=== PATIENT | male | born 1985 | race African-American/Black ===

== ENCOUNTER 2025-01-16 13:14 | Emergency (ER) | payer OTHER ==
[2025-01-16] MEDS ORDERED: LIDOCAINE 1% 20 ML MDV ONE (13:31)
--- NOTE | 2025-01-16 13:56 | RAD REPORT ---
EXAM: CT brain without contrast HISTORY: TRAUMA COMPARISON: None TECHNIQUE: Multiple contiguous axial images were obtained and a CT of the brain without contrast. Sag ittal and coronal reformats were performed. One or more of the following dose reduction techniques were used: Automated exposure control, adjust ment of the mA and/or kV according to patient size, and/or iterative reconstruction. FINDINGS: No evidence of hydrocephalus, intracranial hemorrhage, or extra-axial fluid collection. The brain is normal in morphology. No evidence of midline shift or areas of brain edema. The calvarium is intact. The visualized paranasal sinuses and mastoid air cells are essentially clear . EXAM: CT of the cervical spine without contrast HISTORY: Neck pain, injury TRAUMA TECHNIQUE: Multiple contiguous axial images were obtained in a CT of the cervical spine without contr ast. Sagittal and coronal reformats were performed. FINDINGS: The vertebral bodies demonstrate normal height and alignment. No evidence of acute fracture or subluxation.. There is mild spondylosis noted at C5-6. No prevertebral soft tissue swelling is seen. The posterior facets are well aligned. Normal alignment of the skull base with the cervical spine is seen. The lung apices are unremarkable. COMBINED IMPRESSION: No evidence of acute intracranial abnormality. No evidence of acute osseous abnormality of the cervical spine. Mild spondylosis C5-6.
[2025-01-16 14:28] LABS: Absolute Eosinophils 0.1 K/uL (0-0.5); Absolute Lymphocytes (CBC) 1.2 K/uL (0.7-4.9); Absolute Monocytes 0.4 K/uL (0.1-1.3); Absolute Neutrophil 4.7 K/uL (1.8-8.0); Basophils % 0.7 % (0-1.3); Hematocrit 34.8 % (39.6-49.0); Hemoglobin 12.1 g/dL (13.6-17.9); MCH 30.7 pg (27.0-35.0); MCHC 34.7 g/dL (32.0-36.0); MCV 88.4 fL (80-100); MPV 9.6 fL (7.6-11.3); Monocytes % 6.7 % (3.3-12.3); Neutrophils % 72.6 % (41.7-73.7); Platelets 213 thou/uL (152-406); RBC Red Blood Cell Count 3.94 M/uL (4.33-5.43); Red Cell Distribution Width 12.4 % (12.1-15.2)
[2025-01-16 14:37] LABS: PT Prothrombin Time 11.4 SECONDS (10-13.0); PTT, Activated Partial Thromb 20.1 SECONDS (27.2-37.4)
[2025-01-16 14:43] LABS: Barbiturates NEGATIVE (NEGATIVE); Benzodiazepines NEGATIVE (NEGATIVE); Cocaine NEGATIVE (NEGATIVE); METHAMPHETAM NEGATIVE (NEGATIVE); Methadone NEGATIVE (NEGATIVE); Opiates NEGATIVE (NEGATIVE); Phencyclidine NEGATIVE (NEGATIVE); THC Cannibis NEGATIVE (NEGATIVE)
[2025-01-16 14:53] LABS: Albumin 3.3 g/dL (3.4-5.0); Albumin/Globulin Ratio 0.9 (1.1-1.8); Anion Gap 9.9 mEq/L (5.0-15.0); Bilirubin Direct 0.2 mg/dL (0-0.2); Bilirubin Indirect, Calculated 0.8 mg/dL (0.2-0.8); Globulin 3.6 g/dL (2.3-3.5); Potassium 3.9 mEq/L (3.5-5.1); Protein, Total 6.9 g/dL (6.4-8.2)
--- NOTE | 2025-01-16 15:08 | EDPHYS ---
Physician Documentation [facility] Name: Fahad Westfall Age: 39 yrs Sex: Male : 1985 Arrival Date: 01/16/2025 Time: 13:14 Bed 12 Private MD: ED Physician Alexander Steve HPI: 01/16 13:21 This 39 yrs old Male presents to ER via Unassigned with complaints of Laceration To sb4 Forehead, Drug Abuse. 13:22 patient was found down in a communal room this afternoon with a forehead laceration, sb4 complaining of neck pain. patient does not recall what happened. EMS noted him to be hypotensive - 81/41 - and somnolent, administered 2 rounds of 2 mg narcan and IV fluids which improved his mentation and blood pressure. patient denies any other injuries. has no complaints at this time. Historical: - Allergies: 13:23 No Known Allergies; kj2 - Immunization history:: Adult Immunizations unknown. - Infectious Disease History:: Denies. - Social history:: Smoking status: unknown. ROS: 13:22 Constitutional: Negative for fever, chills, and weight loss, sb4 13:22 Neck: Positive for pain at rest, of the neck, 13:22 Skin: Positive for laceration(s), of the forehead, 13:22 All other systems are negative, Exam: 13:22 Head/Face: Normocephalic, atraumatic. Eyes: Extra-ocular motions intact. Periorbital sb4 areas with no swelling, redness, or edema. Cardiovascular: Regular rate and rhythm with a normal S1 and S2. Respiratory: No increased work of breathing, no retractions or nasal flaring. Abdomen/GI: Soft, non-tender, no distension. 13:22 Constitutional: The patient appears in no acute distress, alert, awake, 13:22 Neck: C-spine: C-collar placed [employer], C-collar is removed, after CT scanning reveals no obvious unstable abnormality, 13:22 Skin: injury, laceration(s), the wound is approximately 5 cm(s), with a depth of .5 cm(s), of the forehead, that can be described as clean, no foreign body, linear, without bleeding, Vital Signs: 13:19 BP 105 / 65; Pulse 66; Resp 20; Temp 98.1; Pulse Ox 100% ; Weight 78.47 kg; kj2 14:25 BP 106 / 74; Pulse 68; Resp 18; Pulse Ox 100% on R/A; kj2 15:26 BP 114 / 74; Pulse 70; Resp 20; Temp 98; Pulse Ox 100% on R/A; kj2 Laceration: 15:05 Wound Repair of 5cm ( 2.0in ) subcutaneous laceration to forehead. Distal sb4 neuro/vascular/tendon intact. Anesthesia: Local anesthetic administered with 7 mls of 1% lidocaine. Wound prep: Simple cleansing with hibiclenz by me, Wound irrigation with saline by me, Copious irrigation. Skin closed with 4 5-0 Prolene using simple sutures and sterile technique. Dressed with Neosporin. Patient tolerated well. MDM: 13:18 Medical Screening Exam initiated sb4 13:55 Differential diagnosis: concussion, intracranial bleed, skull fracture, drug abuse, sb4 superficial laceration. 15:05 Data reviewed: vital signs, nurses notes, EMS record, lab test result(s), radiologic sb4 studies, and as a result, I will discharge patient. Historians other than the Patient: EMS: EMS. Law enforcement: correctional officers. Counseling: I had a detailed discussion with the patient and/or guardian regarding the historical points, exam findings, and any diagnostic results supporting the discharge/admit diagnosis, lab results, radiology results, the need for outpatient follow up, for suture removal in 5-7 days, to return to the emergency department if symptoms worsen or persist or if there are any questions or concerns that arise at home. 01/16 13:20 Order name: Acetaminophen; Complete Time: 15:08 sb4 01/16 13:20 Order name: Basic Metabolic Panel; Complete Time: 15:08 sb4 01/16 13:20 Order name: CBC with Diff; Complete Time: 14:30 sb4 01/16 13:20 Order name: ETOH Level; Complete Time: 15:08 sb4 01/16 13:20 Order name: Hepatic Function; Complete Time: 15:08 sb4 01/16 13:20 Order name: PT-INR; Complete Time: 14:38 sb4 01/16 13:20 Order name: Ptt, Activated; Complete Time: 14:38 sb4 01/16 13:20 Order name: Salicylate sb4 01/16 13:20 Order name: Urine Drug Screen; Complete Time: 14:45 sb4 01/16 13:20 Order name: Head C Spine MPR Wo Con CT; Complete Time: 13:56 sb4 01/16 13:20 Order name: IV Saline Lock; Complete Time: 15:25 sb4 01/16 13:20 Order name: Labs collected and sent; Complete Time: 15:25 sb4 01/16 13:20 Order name: Suicide Screening ([place]); Complete Time: 15:25 sb4 Administered Medications: 15:24 Drug: Lidocaine Infiltration (1 %) 20 ml 20 ml Infiltration once; to bedside Volume: 20 kj2 ml; Route: Infiltration; Disposition: 16:38 Co-signature as Attending Physician, Alexander Steve MD I reviewed the patient's care rn provided by the Advanced Practice Provider and agree with the diagnosis and treatment plan. Disposition Summary: 01/16/25 15:07 Discharge Ordered Notes: Location: Home sb4 Problem: new sb4 Symptoms: have improved sb4 Condition: Stable sb4 Diagnosis - Forehead laceration sb4 - Unspecified injury of head, initial encounter sb4 Followup: sb4 - With: Private Physician - When: 1 week - Reason: Staple/Suture removal Discharge Instructions: - Discharge Summary Sheet sb4 - Laceration Care, Adult, [id number] sb4 - Head Injury, Adult, [id number] sb4 Forms: - Patient Portal Instructions sb4 - Leadership Thank You Letter sb4 Signatures: Dispatcher [employer] Alexander Pace MD MD rn Brown, Sophia, PA-C PAJohnny sb4 Tiffany Lopez RN RN kj2 Corrections: (The following items were deleted from the chart) 13:20 13:20 ACETAMINOPHEN+C.LAB.BRZ ordered. EDMS EDMS 13:20 13:20 BASIC METABOLIC PANEL+C.LAB.BRZ ordered. EDMS EDMS 13:20 13:20 CBC+H.LAB.BRZ ordered. EDMS EDMS 13:20 13:20 ETHANOL+C.LAB.BRZ ordered. EDMS EDMS 13:20 13:20 HEPATIC FUNCTION+C.LAB.BRZ ordered. EDMS EDMS 13:20 13:20 PROTIME (+INR)+COAG.LAB.BRZ ordered. EDMS EDMS 13:20 13:20 PTT, ACTIVATED+COAG.LAB.BRZ ordered. EDMS EDMS 13:20 13:20 SALICYLATE+C.LAB.BRZ ordered. EDMS EDMS 13:20 13:20 URINE DRUG SCREEN+UC.LAB.BRZ ordered. EDMS EDMS 13:20 13:20 Head C Spine MPR Wo Con+CT.RAD.BRZ ordered. EDMS EDMS 14:39 13:20 EKG - Nurse/Tech ordered. sb4 sb4 15:10 13:22 Neck: C-spine: C-collar placed [employer], sb4 sb4
--- NOTE | 2025-01-16 15:08 | ER ---
Nurse's Notes [facility] Name: Fahad Westfall Age: 39 yrs Sex: Male : 1985 Arrival Date: 01/16/2025 Time: 13:14 Bed 12 Private MD: Diagnosis: Forehead laceration;Unspecified injury of head, initial encounter Presentation: 01/16 13:19 Chief complaint: EMS states: 3cm laceration to forehead, reported fall. Coronavirus kj2 screen: Client denies travel out of the [place] in the last 14 days. Ebola Screen: No symptoms or risks identified at this time. Complicating Factors:. Initial Sepsis Screen: Does the patient meet any 2 criteria? No. Patient's initial sepsis screen is negative. Does the patient have a suspected source of infection? No. Patient's initial sepsis screen is negative. Risk Assessment: Do you want to hurt yourself or someone else? Patient reports no desire to harm self or others. Onset of symptoms was January 16, 2025. 13:19 Method Of Arrival: EMS: [facility] kj2 13:19 Acuity: SOUMYA 3 kj2 Triage Assessment: 13:23 General: Appears in no apparent distress. Behavior is cooperative. Pain: Denies pain. kj2 Neuro: Level of Consciousness is awake, alert, obeys commands, Oriented to person, place, time, situation. Cardiovascular: Patient's skin is warm and dry. Respiratory: Airway is patent Respiratory effort is unlabored. GI: No signs and/or symptoms were reported involving the gastrointestinal system. : No signs and/or symptoms were reported regarding the genitourinary system. Injury Description: Laceration sustained to left side of forehead. Historical: - Allergies: 13:23 No Known Allergies; kj2 - Immunization history:: Adult Immunizations unknown. - Infectious Disease History:: Denies. - Social history:: Smoking status: unknown. Screenin:25 [facility] ED Fall Risk Assessment (Adult) History of falling in the last 3 months, kj2 including since admission No falls in past 3 months (0 pts) Confusion or Disorientation No (0 pts) Intoxicated or Sedated No (0 pts) Impaired Gait No (0 pts) Mobility Assist Device Used No (0 pt) Altered Elimination No (0 pt) Score/Fall Risk Level 0 - 2 = Low Risk Maintained a safe environment, Hourly rounding (assess needs \T\ fall precautionary measures) done. Abuse screen: Denies threats or abuse. Denies injuries from another. Nutritional screening: No deficits noted. Tuberculosis screening: No symptoms or risk factors identified. Assessment: 13:24 General: see triage assessment. kj2 13:25 Musculoskeletal: No deficits noted. kj2 13:25 Injury Description: Laceration is 0.5 to 2.5 cm long. kj2 14:25 Reassessment: Patient appears in no apparent distress at this time. Patient and/or kj2 family updated on plan of care and expected duration. Pain level reassessed. Patient is alert, oriented x 3, equal unlabored respirations, skin warm/dry/pink. 15:25 Reassessment: Patient appears in no apparent distress at this time. Patient and/or kj2 family updated on plan of care and expected duration. Pain level reassessed. Patient is alert, oriented x 3, equal unlabored respirations, skin warm/dry/pink. Vital Signs: 13:19 BP 105 / 65; Pulse 66; Resp 20; Temp 98.1; Pulse Ox 100% ; Weight 78.47 kg; kj2 14:25 BP 106 / 74; Pulse 68; Resp 18; Pulse Ox 100% on R/A; kj2 15:26 BP 114 / 74; Pulse 70; Resp 20; Temp 98; Pulse Ox 100% on R/A; kj2 ED Course: 13:17 Patient arrived in ED. kj2 13:18 Jeanette Titus PA-C is [facility]. sb4 13:18 Alexander Steve MD is Attending Physician. sb4 13:23 Triage completed. kj2 13:25 Patient has correct armband on for positive identification. Bed in low position. Call kj2 light in reach. Adult w/ patient. Provided Education on: call light. 13:25 Arm band placed on Patient placed. kj2 13:25 No provider procedures requiring assistance completed. Maintain EMS IV. Dressing kj2 intact. Good blood return noted. Site clean \T\ dry. Gauge \T\ site: 20 right AC. Flushed with 10 mL NS. 13:27 Tiffany Lopez, RN is Primary Nurse. kj2 13:50 Head C Spine MPR Wo Con CT In Process Unspecified. EDMS 15:33 IV discontinued, intact, bleeding controlled, No redness/swelling at site. Pressure kj2 dressing applied. Administered Medications: 15:24 Drug: Lidocaine Infiltration (1 %) 20 ml 20 ml Infiltration once; to bedside Volume: 20 kj2 ml; Route: Infiltration; Medication: 13:25 VIS not applicable for this client. kj2 Outcome: 15:07 Discharge ordered by . jennifer 15:32 Discharged to [facility] staff kj2 15:32 Condition: stable 15:32 Discharge instructions given to patient and [facility] staff 15:34 Patient left the ED. kj2 Signatures: Dispatcher [employer] Jeanette Oconnell PA-C PAZackeryC [email or web address] Tiffany Lopez, RN RN kj2
[2025-01-16 16:18] VITALS: O2SAT 100
[2025-01-16 16:22] VITALS: BP 114/74; TEMP 98
== END 2025-01-16 15:34 | disposition home or self-care (01) ==
LOC: ER 13:14
DX: S01.81XA Laceration without foreign body of other part of head, initial encounter (principal); M54.2 Cervicalgia
CPT/HCPCS: 85025; 80048; 36415; 85610; 80076; 85730; 80307; 70450; 72125; 99284; 12032; 80143; 80179; 82077; J2003